=== PATIENT | female | born 1955 | race African-American/Black ===

== ENCOUNTER 2016-09-27 10:14 | Emergency (ER) | payer OTHER ==
--- NOTE | 2016-09-27 10:34 | ED Physician Chart ---
Chief Complaint/HPI - Patient Information Date Seen:: 09/27/16 Time Seen:: 10:25 Chief Complaint:: Cough for one week. History of Present Illness:: Pt has had cough with nasal congestion, sinus pressure for about one week. Cough with brown yellow phlegm. No fever. No dyspnea. Taking po well without N/V /D. No lightheadedness. Allergies:: Allergies Allergy/AdvReac Type Severity Reaction Status Date / Time No Known Allergies Allergy Verified 09/27/16 10:28 Vitals:: see Nurse Note. Historian:: Patient Family MD/PCP:: Dr. Salma Shine. LMP:: Postmenopausal. Review:: Nurse's Note Reviewed Review of Systems - Review of Systems General/Constitutional: No fever, No chills, No weight loss, No weakness, No diaphoresis, No edema, No loss of appetite Skin: No skin lesions, No rash, No bruising Head: No headache, No light-headedness, Other (Frontal sinus pressure.) Eyes: No loss of vision, No pain, No diplopia ENT: No earache, Nasal drainage, No sore throat Neck: No neck pain, No swelling, No thyromegaly, No stiffness, No mass noted Cardio Vascular: No chest pain, No palpitations, No PND, No orthopnea, No edema Pulmonary: No SOB, Cough, Sputum (yellow brown phlegm.), No wheezing GI: No nausea, No vomiting, No diarrhea, No pain, No melena, No hematochezia, No constipation, No hematemesis G/U: No dysuria, No frequency, No hematuria Musculoskeletal: No bone or joint pain, No back pain, No muscle pain Endocrine: No polyuria, No polydipsia Psychiatric: No prior psych history Hematopoietic: No bruising, No lymphadenopathy Allergic/Immuno: No urticaria, No angioedema Neurological: No syncope, No focal symptoms, No weakness, No paresthesia, No headache, No seizure, No dizziness, No confusion, No vertigo Past Medical History - Past Medical History Past Medical History: No significant medical hx Family History: None Social History: Smoker (1/2 ppd. Pt has been informed about health risks assciated with chronic tobacco use and has been advised to quit. Pt has been encouraged to enroll in a smoking cessation program. 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 Surgical History: None Psychiatricy History: None Medication: Reviewed Physical Exam - Physical Examination General/Constitutional: Awake, Well-developed, well-nourished, Alert, No distress, GCS 15, Non-toxic appearing, Ambulatory Other Gen/Cons comments:: Breathes comfortably, speaks clearly, and ambulates without difficulty. Head: Atraumatic Eyes: Lids, conjuctiva normal, PERRL, EOMI Skin: Nl inspection, No rash, No skin lesions, No ecchymosis, Well hydrated, No lymphadenopathy ENMT: TM canals nl, Lips, teeth, gums nl, Oropharynx nl, Tonsils nl Other ENMT comments:: There is trace light yellow nasal discharge and postnasal drip noticed. Neck: Nontender, Full ROM w/o pain, No JVD, No nuchal rigidity, No stridor Respiratory: Nl effort/Exclusion, Clear to Auscultation, No Wheeze/Rhonchi/Rales Cardio Vascular: RRR, No murmur, gallop, rubs, NL S1 S2 GI: No tenderness/rebounding/guarding, No organomegaly, No hernia, Normal BS's, Nondistended, No mass/bruits, No McBurney tenderness Other GI comments:: Abdomen is soft. Extremities: No tenderness or effusion, Full ROM, normal strength in all extremities, No edema, Normal digits & nails Neuro/Psych: Alert/oriented (oriented x 3.), Judgement/insight normal, Mood normal, Normal gait, No focal deficits ED Septic Shock - . Is Septic Shock (SBP<90, OR Lactate>4 mmol\L) present?: No Reassessment (Disposition) - Reassessment Reassessment:: 1105 Pt remains stable. Pt requests to go home now. Aftercare instructions given. - Diagnosis Diagnosis:: Acute sinusitis, stable. - Aftercare/Follow up Instructions Aftercare/Follow-Up Instructions:: Refer to Discharge Instructions Notes:: Push oral fluid. May use Sudafed as directed. May use Motrin 200 mg tab 3 tabs po q8h prn for pain or fever. Stop tobacco use. F/U with PCP Dr. Shine in 2-3 days for recheck. Return to ER immediately if condition worsens or if any further questions/problems. Medication Prescribed:: Bactrim DS one tab po q12h D-28 R-0 - Patient Disposition Discharge/Transfer:: Home Time:: 11:15 Condition at Disposition:: Stable
== END 2016-09-27 11:19 | disposition short-term general hospital (02) ==
LOC: ER 10:14
DX: J01.90 Acute sinusitis, unspecified (principal)
CPT/HCPCS: Z7502

== ENCOUNTER 2016-10-03 09:00 | Emergency (ER) | payer OTHER ==
[2016-10-03 09:12] VITALS: BP 122/76
--- NOTE | 2016-10-03 09:35 | ED Physician Chart ---
Chief Complaint/HPI - Patient Information Date Seen:: 10/03/16 Time Seen:: 09:25 Chief Complaint:: COUGH FOR 5 DAYS. CAN'T SLEEP History of Present Illness:: THIS 61 YEAR OLD FEMALE PRESENT WITH A 5 DAY HISTORY OF COUGH AND DIFFICULTY SLEEPING DUE TO COUGH. THE COUGH IS PRODUCTIVE OF CLEAR TO YELLOW SPUTUM. NO HEMOPTISIS. MILD SHORTNESS OF BREATH WHEN COUGHING. NO DELATORRE. NO FEVER OR CHILLS BUT HAS HAD SOME DIAPHORESIS. NO CHEST PAIN. SMOKES A HALF PACK OF CIG. PER DAY. NO RECENT WEIGHT LOSS. Allergies:: Allergies Allergy/AdvReac Type Severity Reaction Status Date / Time No Known Allergies Allergy Verified 09/27/16 10:28 Vitals:: Vital Signs - 8 hr 10/03/16 10/03/16 09:11 09:13 Temp 98.2 F HR 76 RR 15 BP 122/76 122/7 O2 Sat % 100 Review of Systems - Review of Systems General/Constitutional: No fever, No chills, Diaphoresis, No loss of appetite Skin: No skin lesions, No rash Head: No headache, No light-headedness Eyes: No loss of vision, No diplopia ENT: No earache, No sore throat, No tinnitus, Other (NASAL CONGESTION) Neck: No neck pain, No swelling, No thyromegaly, No mass noted Cardio Vascular: No chest pain, No palpitations, No orthopnea, No edema Pulmonary: SOB, Cough, Sputum, No wheezing GI: No nausea, No vomiting, No diarrhea, No pain G/U: No dysuria, No frequency, No hematuria 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 HAS PLAN TO STAY WITH HER NIECE WHO LIVES IN THIS AREA. Family Medical History - Family Member Mother History Unknown: Yes Ethnicity: Non- Living Status: Still Living Hx Family Cancer: No Hx Family Congestive Heart Failure: No Hx Family Hypertension: No Hx Family Stroke: No Hx Family Seizures: No Hx Family Dementia: No Hx Family HIV: No Hx Family COPD: No Hx Family Hepatitis: No Physical Exam - Physical Examination General/Constitutional: Well-developed, well-nourished, Alert, No distress, Non- toxic appearing, Ambulatory Head: Atraumatic Eyes: Lids, conjuctiva normal, PERRL, EOMI Other Eyes comments:: ARCUS BOTH EYES Skin: Nl inspection, No rash, No skin lesions, No ecchymosis, Well hydrated, No lymphadenopathy ENMT: External ears, nose nl, TM canals nl, Nasal exam nl, Lips, teeth, gums nl , Oropharynx nl, Tonsils nl Neck: Nontender, Full ROM w/o pain, No JVD, No nuchal rigidity, No bruit, No mass, No stridor Respiratory: Nl effort/Exclusion, Clear to Auscultation, No Wheeze/Rhonchi/Rales Cardio Vascular: No murmur, gallop, rubs, NL S1 S2 Other Cardio Vascular comments:: GOOD PULSES ALL 4 EXTREMITIES GI: No tenderness/rebounding/guarding, No organomegaly, No hernia, Normal BS's, Nondistended, No mass/bruits, No McBurney tenderness Other GI comments:: RECTAL DIFFERED AT MY DISCRETION : No CVA tenderness Extremities: No tenderness or effusion, Full ROM, normal strength in all extremities, No edema, Normal digits & nails Neuro/Psych: Alert/oriented, Normal sensory exam, Normal motor strength, Judgement/insight normal, Mood normal, Normal gait, No focal deficits Misc: Normal back, No paraspinal tenderness Labs/Radiology/EKG Results - Lab Results Results: CXR SINGLE AP VIEW. NO CARDIOMEGALY. NO MEDIASTINAL WIDENING. NO AORTIC CALCIFICATIONS. NO CHF. NO AREAS OF PULMONARY INFILTRATE OR CONSOLIDATION. IMPRESSION: NO ACUTE CARDIOPULMONARY FINDINGS. Assessment - Assessment General Assessment: CASE SUMMARY: 61 YEAR OLD FEMALE WITH COUGH FOR 5 DAYS. NO FEVER, CHILLS, WHEEZING OR HEMOPTYSIS. LUNS CLEAR TO AUSCULTATION AND PULSE OX ON ROOM AIR IS 100%. CXR WAS NEGATIVE FOR PULMONARY INFILTRATES OR CONSOLIDATION. DIAGNOSIS OF BRONCHITIS. D/C WITH RX FOR PHENERGAN WITH CODEINE AND AZITHROMYCIN (Z-BLAS) . ADISED TO RETURN TO THE ER IF HER SYMPTOMS WORSEN. MDM DDX OF COUGH AND CHEST CONGESTION: NOT PNEUMONIA BASED ON NO FEVER CHILLS OR SWEATS. LUNGS CLEAR AND NO AREAS OF PULMONARY INFILTRATE OR CONSOLIDATION. NOT PLEURAL EFFUSION DUE TO NEG CXR. NOT PULMONARY EMBOLUS DUE TO LOW RISK WITH WELL'S SCORE OF "0". NO PNEUMOTHORAX DUE TO NEGATIVE CXR FOR PNEUMOTHORAX. ED Septic Shock - . Is Septic Shock (SBP<90, OR Lactate>4 mmol\\L) present?: No - <6hrs of presentation: Vital Signs: Vital Signs - 8 hr 10/03/16 10/03/16 09:11 09:13 Temp 98.2 F HR 76 RR 15 BP 122/76 122/7 O2 Sat % 100 Reassessment (Disposition) - Reassessment Reassessment Condition:: Unchanged - Diagnosis Diagnosis:: ACUTE BRONCHITIS. INSOMNIA. RETURN TO THE ER IF YOUR SYMPTOMS WORSEN. ED Discharge Plan - Patient Disposition Admit/Discharge/Transfer: PT DISCHARGED HOME Condition at Disposition: Stable Prescriptions: Codeine/Promethazine Susp [Phenergan W/Cod Susp] 5 ml PO Q4HR PRN #0 lana PRN Reason: Cough RX: Azithromycin [Zithromax] 250 mg PO DAILY #0 tab Instructions: Bronchitis, [id number], Upper Respiratory Infection, Adult, [id number]
--- NOTE | 2016-10-03 10:49 | Diagnostic Imaging Report ---
Portable chest x-ray History: Cough Allowing for portable technique the heart size is normal. No focal pulmonary parenchymal processes. No hilar or mediastinal abnormalities. There appears to be a mild scoliosis of the thoracic spine. This may be positional. Impression: 1. No acute abnormalities 2. Scoliosis
== END 2016-10-03 10:45 | disposition home or self-care (01) ==
LOC: ER 09:00
DX: J20.9 Acute bronchitis, unspecified (principal); G47.00 Insomnia, unspecified; Z59.0 Homelessness; F17.200 Nicotine dependence, unspecified, uncomplicated
CPT/HCPCS: 71010-TC; Z7502